=== PATIENT | female | born 1940 | race Caucasian/White ===

== ENCOUNTER 2016-09-26 09:15 | Emergency (ER) | payer OTHER ==
[~2016-09-26] VITALS: Ht 149.9 cm; Wt 62.3 kg
[2016-09-26] MEDS ORDERED: AUGMENTIN875 MG PO (10:31)
[2016-09-26 10:45] VITALS: BP 189/97
== END 2016-09-26 10:47 | disposition home or self-care (01) ==
LOC: EME 09:15
PROC: 3E0234Z Introduction of Serum, Toxoid and Vaccine into Muscle, Percutaneous Approach (ICD-10-PCS; principal; 2016-09-26)
DX: S61.451A Open bite of right hand, initial encounter (principal); W54.0XXA Bitten by dog, initial encounter; I10 Essential (primary) hypertension; E78.00 Pure hypercholesterolemia, unspecified; I25.2 Old myocardial infarction; Z95.5 Presence of coronary angioplasty implant and graft; Z79.02 Long term (current) use of antithrombotics/antiplatelets; F32.9 Major depressive disorder, single episode, unspecified; F41.9 Anxiety disorder, unspecified; Z85.3 Personal history of malignant neoplasm of breast
CPT/HCPCS: 99281; 99284

== ENCOUNTER 2016-10-14 23:50 | Emergency (ER) | payer OTHER ==
[~2016-10-14] VITALS: Ht 149.9 cm; Wt 69.8 kg
[~2016-10-14 23:50] MED LIST: AUGMENTIN875 MG PO
[2016-10-15] MEDS ORDERED: PERCOCET 5/31 TABLET PO (00:47)
[2016-10-15] MEDS ORDERED: KEFLEX500 MG PO (01:30)
[2016-10-15 01:38] VITALS: BP 140/85
[2016-10-22] MEDS ORDERED: LOPRESSOR25 MG PO (11:30)
[2016-10-22] MEDS ORDERED: COZAAR100 MG PO (11:30)
[2016-10-22] MEDS ORDERED: NORVASC5 MG PO (11:32)
[2016-10-22] MEDS ORDERED: LIPITOR40 MG PO (11:32)
[2016-10-22] MEDS ORDERED: PLAVIX75 MG PO (11:32)
[2016-10-22] MEDS ORDERED: CYMBALTA20 MG PO (11:33)
[2016-10-22] MEDS ORDERED: TRENTAL400 MG PO (11:34)
[2016-10-22] MEDS ORDERED: PROTONIX40 MG PO (11:34)
[2016-10-22] MEDS ORDERED: RED YEAST RICE600 MG PO (11:35)
[2016-10-22] MEDS ORDERED: ZETIA10 MG PO (11:35)
[2016-10-22] MEDS ORDERED: LO-DOSE ASPIRIN81 M2 PO (11:35)
[2016-10-22] MEDS ORDERED: WOMEN'S 50 PLU1 EACH PO (11:36)
[2016-10-22] MEDS ORDERED: VITAMIN E400 UNIT PO (11:36)
[2016-10-22] MEDS ORDERED: RANITIDINE HCL150 M1 PO (11:37)
[2016-10-22] MEDS ORDERED: NITROSTAT0.4 MG SL (11:37)
[2016-10-22] MEDS ORDERED: LASIX20 MG PO ×2 (11:38→11:39)
[2016-10-22] MEDS ORDERED: BIOTIN1000 MICRO PO (11:52)
[2016-10-22] MEDS ORDERED: IRON PO (11:53)
[2016-10-22] MEDS ORDERED: GINKGO BILOBA120 M1 PO (11:54)
[2016-10-22] MEDS ORDERED: PERCOCET 5/31 TABLET PO (11:57)
== END 2016-10-15 05:47 | disposition home or self-care (01) ==
LOC: EME → EDBD 23:50 → EME 10-15 05:47
PROC: 2W3QX1Z Immobilization of Right Lower Leg using Splint (ICD-10-PCS; principal; 2016-10-14)
DX: S82.841A Displaced bimalleolar fracture of right lower leg, initial encounter for closed fracture (principal); W01.0XXA Fall on same level from slipping, tripping and stumbling without subsequent striking against object, initial encounter; Z85.3 Personal history of malignant neoplasm of breast; Z90.12 Acquired absence of left breast and nipple; Z87.891 Personal history of nicotine dependence
CPT/HCPCS: 73590; 73610; 99281; 99285; J3010

== ENCOUNTER 2016-10-23 23:06 | Emergency (ER) | payer OTHER ==
[~2016-10-23] VITALS: Ht 152.4 cm; Wt 62.2 kg
[~2016-10-23 23:06] MED LIST changes: +BIOTIN1000 MICRO PO; +COZAAR100 MG PO; +CYMBALTA20 MG PO; +GINKGO BILOBA120 M1 PO; +IRON PO; +KEFLEX500 MG PO; +LASIX20 MG PO; +LIPITOR40 MG PO; +LO-DOSE ASPIRIN81 M2 PO; +LOPRESSOR25 MG PO; +NITROSTAT0.4 MG SL; +NORVASC5 MG PO; +PERCOCET 5/31 TABLET PO; +PLAVIX75 MG PO; +PROTONIX40 MG PO; +RANITIDINE HCL150 M1 PO; +RED YEAST RICE600 MG PO; +TRENTAL400 MG PO; +VITAMIN E400 UNIT PO; +WOMEN'S 50 PLU1 EACH PO; +ZETIA10 MG PO
[2016-10-24 05:42] VITALS: BP 124/64
== END 2016-10-24 05:42 | disposition home or self-care (01) ==
LOC: EME → EDBD 23:06 → EME 10-24 05:42
PROC: 2W3QX1Z Immobilization of Right Lower Leg using Splint (ICD-10-PCS; principal; 2016-10-23)
DX: Z47.89 Encounter for other orthopedic aftercare (principal); M79.604 Pain in right leg
CPT/HCPCS: 99281; 99285; J2060; J2270

== ENCOUNTER 2016-10-25 13:12 | Day surgery (SDC) | payer OTHER ==
[~2016-10-25] VITALS: Ht 152.4 cm; Wt 68.0 kg
[2016-10-25 14:10] VITALS: BP 143/66
[2016-10-25 21:26] VITALS: BP 167/73
[2016-10-25 23:57] VITALS: BP 169/73
[2016-10-26 04:21] VITALS: BP 183/77
[2016-10-26 07:54] VITALS: BP 142/65
[2016-10-26] MEDS ORDERED: FERROUS SULFAT325 MG PO (09:34)
[2016-10-26] MEDS ORDERED: PERCOCET 5/31 TABLET PO (09:36)
[2016-10-26 12:10] VITALS: BP 175/72
[2016-10-26 16:34] VITALS: BP 149/71
[2016-10-26 21:03] VITALS: BP 131/64
[2016-10-27 00:42] VITALS: BP 139/67
[2016-10-27 03:40] VITALS: BP 143/70
[2016-10-27 07:48] VITALS: BP 148/73
[2016-10-27] MEDS ORDERED: REGLAN10 MG PO (16:06)
[2016-10-27] MEDS ORDERED: PERCOCET 10/1 TABLET PO (16:07)
== END 2016-10-27 14:32 ==
LOC: SDC 13:12 → 2SOUTH 18:52 → 3EAST 18:52 → 2SOUTH 18:52 → 3EAST 19:48
PROC: 0SSF04Z Reposition Right Ankle Joint with Internal Fixation Device, Open Approach (ICD-10-PCS; principal; 2016-10-25)
DX: S82.841A Displaced bimalleolar fracture of right lower leg, initial encounter for closed fracture (principal); I25.10 Atherosclerotic heart disease of native coronary artery without angina pectoris; Z95.5 Presence of coronary angioplasty implant and graft; I10 Essential (primary) hypertension; I73.9 Peripheral vascular disease, unspecified; E78.5 Hyperlipidemia, unspecified; Z79.01 Long term (current) use of anticoagulants; W19.XXXA Unspecified fall, initial encounter
CPT/HCPCS: 73600; 76000; C1713; G0378; G8978 GP CJ; G8979 GP CI; J0690; J1170; J2250; J2795; J3010; J7120

== ENCOUNTER 2016-10-27 14:56 | Inpatient (IN) | payer OTHER ==
[~2016-10-27] VITALS: Ht 154.9 cm; Wt 60.2 kg
[~2016-10-27 14:56] MED LIST changes: +FERROUS SULFAT325 MG PO
[2016-10-27 15:08] VITALS: BP 126/69
[2016-10-27] MEDS ORDERED: REGLAN10 MG PO (16:06)
[2016-10-27] MEDS ORDERED: PERCOCET 10/1 TABLET PO (16:07)
[2016-10-27 17:01] LABS: HEMATOCRIT 36.4 % (36.0-46.0); MCH 31.8 PG (29.0-34.0); MCHC 33.8 G/DL (30.0-36.0); MCV 94.1 FL (83-99); PLATELET COUNT 405 K/uL (156-360); RBC DIS.WIDTH-CV 14.3 % (11.8-14.6); RBC DIS.WIDTH-SD 49.3 % (39-53); RED BLOOD COUNT 3.87 M/uL (3.80-5.20)
[2016-10-27 17:32] LABS: ALKALINE PHOSPHATASE 65 IU/L (3-129); ANION GAP 8 MEQ/L (2-14); CHLORIDE 100 MEQ/L (99-109); GFR ESTIMATE (CALCULATED) > 59 mL/min/; GLUCOSE 108 mg/dL (70-99); POTASSIUM 3.6 MEQ/L (3.7-5.4); SAMPLE HEMOLYSIS CHECK 0; SAMPLE ICTERIC CHECK 0; SAMPLE LIPEMIA CHECK 0; SODIUM 135 MEQ/L (136-147); TOTAL BILIRUBIN 0.6 MG/DL (0.0-1.0); UREA NITROGEN (BUN) 19 mg/dL (9-23)
[2016-10-28 00:14] VITALS: BP 132/60
[2016-10-28 04:43] VITALS: BP 141/64
[2016-10-28 15:19] VITALS: BP 127/59
[2016-10-29 05:05] VITALS: BP 137/64
[2016-10-29 07:45] VITALS: BP 137/62
[2016-10-29 13:32] LABS: CHLORIDE 101 MEQ/L (99-109); POTASSIUM 3.7 MEQ/L (3.7-5.4); SODIUM 137 MEQ/L (136-147)
[2016-10-29 13:49] LABS: ANION GAP 9 MEQ/L (2-14); GFR ESTIMATE (CALCULATED) > 59 mL/min/; GLUCOSE 97 mg/dL (70-99); SAMPLE HEMOLYSIS CHECK 0; SAMPLE ICTERIC CHECK 0; SAMPLE LIPEMIA CHECK 0; UREA NITROGEN (BUN) 18 mg/dL (9-23)
[2016-10-29 16:34] VITALS: BP 134/61
[2016-10-30 04:34] VITALS: BP 124/68
[2016-10-30 16:00] VITALS: BP 135/68
[2016-10-31 05:46] VITALS: BP 136/67
[2016-10-31] MEDS ORDERED: K-DUR20 MEQ PO (15:24)
[2016-10-31 15:47] VITALS: BP 127/63
== END 2016-10-31 16:15 | disposition home health service (06) | DRG 561 ==
LOC: 3WEST 14:56
PROVIDERS: Psychiatry & Neurology Neurology
PROC: F07M0ZZ Range of Motion and Joint Mobility Treatment of Musculoskeletal System - Whole Body (ICD-10-PCS; principal; 2016-10-27)
DX: S82.844D Nondisplaced bimalleolar fracture of right lower leg, subsequent encounter for closed fracture with routine healing (principal); R26.2 Difficulty in walking, not elsewhere classified; I10 Essential (primary) hypertension; I25.10 Atherosclerotic heart disease of native coronary artery without angina pectoris; E78.5 Hyperlipidemia, unspecified; Z79.82 Long term (current) use of aspirin; I25.2 Old myocardial infarction; Z95.5 Presence of coronary angioplasty implant and graft; Z87.891 Personal history of nicotine dependence; Z85.3 Personal history of malignant neoplasm of breast; Z91.81 History of falling
CPT/HCPCS: 80048; 80053; 85027; 97110 GO; 97530 GP; J1644; J2060